=== PATIENT | male | born 1995 | race Caucasian/White ===

== ENCOUNTER 2023-01-10 13:56 | Emergency (ER) | payer OTHER ==
[2023-01-10 14:00] VITALS: BP 131/83; PULSE 79; RESP 18; TEMP 98.1; BMI 31.4
[2023-01-10 15:37] LABS: BASO % 0.2 % (0-2.0); EOS % 1.2 % (0-4.5); HEMATOCRIT 43.9 % (35.4-49); HEMOGLOBIN 14.9 GM/dL (11.7-16.9); LYMPH % 39.9 % (8-40); MCH 29.3 pg (25.7-33.7); MEAN CELL VOLUME 86.4 fl (80-96); MEAN PLT VOLUME 7.4 fl (7.5-11.1); MONO % 12.5 % (3.8-10.2); NEUT % 46.2 % (42.8-82.8); PLATELET COUNT 309 10^3/uL (134-434); RBC 5.08 M/mm3 (4.00-5.60); RDW 13.3 % (11.9-15.9); WHITE BLOOD COUNT 7.2 K/mm3 (4.0-10.0)
[2023-01-10 15:54] LABS: INR 1.08 (0.83-1.09); PROTHROMBIN TIME (PATIENT) 12.5 SEC (9.7-13.0)
[2023-01-10 15:59] LABS: CALCIUM 9.5 mg/dL (8.5-10.1)
[2023-01-10 16:00] LABS: BLOOD UREA NITROGEN 13.6 mg/dL (7-18)
[2023-01-10 16:03] LABS: CREATININE 0.9 mg/dL (0.55-1.3)
== END 2023-01-10 20:46 | disposition home or self-care (01) ==
LOC: JER 13:56
DX: K92.1 Melena (principal); K64.4 Residual hemorrhoidal skin tags
CPT/HCPCS: 36415; 74177-TC; 80048; 82272; 85025; 85610; 86850; 86900; 86901; 99285-25; Q9967